=== PATIENT | female | born 1995 | race American Indian/Alaskan Native ===

== ENCOUNTER 2018-12-04 14:37 | Emergency (ER) | payer SELFPAY ==
[2018-12-04 15:03] VITALS: BP 161/58
--- NOTE | 2018-12-04 15:21 | UC ---
Throat Pain/Nasal Manny HPI - HPI Summary HPI Summary: 23-year-old woman comes in with a chief complaint of sore throat for 4 days. Hurts when she swallows. [id number] medicines help with pain. No complaint of any body aches. No shortness of breath. No difficulty breathing. She has been able to eat. - History of Current Complaint Chief Complaint: UCGeneralIllness Stated Complaint: SORE THROAT Time Seen by Provider: 12/04/18 15:10 Hx Last Menstrual Period: 11/14/18 Pain Intensity: 8 - Allergies/Home Medications Allergies/Adverse Reactions: Allergies Allergy/AdvReac Type Severity Reaction Status Date / Time acetaminophen [From [place]] Allergy Hives Verified 12/04/18 14:59 hydrocodone [From [place]] Allergy Hives Verified 12/04/18 14:59 Home Medications: Home Medications Loratadine [Claritin] 10 mg PO DAILY 12/04/18 [History Confirmed 12/04/18] PMH/Surg Hx/FS Hx/Imm Hx Previously Healthy: Yes - Surgical History Surgical History: Yes Surgery Procedure, Year, and Place: Tonsillectomy - Family History Known Family History: Positive: Non-Contributory - Social History Alcohol Use: Occasionally Substance Use Type: None Smoking Status (MU): Heavy Every Day Tobacco Smoker Type: Cigarettes Amount Used/How Often: 1/2 PPD Review of Systems All Other Systems Reviewed And Are Negative: Yes Constitutional: Positive: Negative Skin: Positive: Negative Eyes: Positive: Negative ENT: Positive: Sore Throat, Ear Ache, Sinus Congestion Respiratory: Positive: Negative Cardiovascular: Positive: Negative Gastrointestinal: Positive: Negative Motor: Positive: Negative Neurovascular: Positive: Negative Musculoskeletal: Positive: Negative Neurological: Positive: Negative Psychological: Positive: Negative Is Patient Immunocompromised?: No Physical Exam Triage Information Reviewed: Yes Appearance: No Pain Distress, Well-Nourished, Ill-Appearing - MILD Vital Signs: Initial Vital Signs Temp 97.6 F 12/04/18 15:00 Pulse 75 12/04/18 15:00 Resp 16 12/04/18 15:00 BP 161/58 12/04/18 15:00 Pulse Ox 99 12/04/18 15:00 Vital Signs Reviewed: Yes Eye Exam: Normal Eyes: Positive: Conjunctiva Clear ENT: Positive: Pharyngeal erythema, Nasal congestion, Nasal drainage, TMs normal Neck exam: Normal Neck: Positive: Supple Respiratory: Positive: Lungs clear, Normal breath sounds, No respiratory distress Cardiovascular: Positive: RRR Musculoskeletal Exam: Normal Musculoskeletal: Positive: Strength Intact, ROM Intact Neurological Exam: Normal Neurological: Positive: Alert, Muscle Tone Normal Psychological Exam: Normal Psychological: Positive: Age Appropriate Behavior Skin Exam: Normal Throat Pain/Nasal Course/Dx - Course Course Of Treatment: DISCUSSED VIRAL VERSES BACTERIAL INFECTION AND THE ROLE OF ANTIBIOTICS. THE PATIENT WISHES TO BE ON ANTIBIOTICS AT THIS TIME. - Differential Dx/Diagnosis Provider Diagnosis: Pharyngitis Discharge - Sign-Out/Discharge Documenting (check all that apply): Patient Departure All imaging exams completed and their final reports reviewed: No Studies - Discharge Plan Condition: Stable Disposition: HOME Prescriptions: Amoxicillin PO (*) [Amoxicillin 875 MG (*)] 875 mg PO BID #20 tab Dextromethorphan/Benzocaine [Cepacol Sorethroat-Cough Mylene] 1 mylene PO Q1HR PRN # 30 lozenge PRN Reason: Pain Patient Education Materials: Pharyngitis (ED) Forms: *Work Release Referrals: [facility] [place] [place] [facility] [Outside] Additional Instructions: FOLLOW UP WITH YOUR DOCTOR IF NOT COMPLETELY IMPROVED. GET REEVALUATED SOONER IF YOUR CONDITION WORSENS OR ANY QUESTIONS OR CONCERNS. - Billing Disposition and Condition Condition: STABLE Disposition: Home
== END 2018-12-04 15:37 | disposition home or self-care (01) ==
LOC: UCCORT 14:37
DX: J02.9 Acute pharyngitis, unspecified (principal); R09.81 Nasal congestion; H92.09 Otalgia, unspecified ear; F17.210 Nicotine dependence, cigarettes, uncomplicated; Z88.8 Allergy status to other drugs, medicaments and biological substances; Z88.5 Allergy status to narcotic agent
CPT/HCPCS: 87651; 99202; G0463

== ENCOUNTER 2018-12-31 20:55 | Emergency (ER) | payer SELFPAY ==
[2018-12-31 21:00] VITALS: BP 142/90
[2018-12-31] MEDS ORDERED: methylPREDNISolone 125 MG* 2 ML VIAL IM ONE (21:02)
[2018-12-31] MEDS ORDERED: diPHENhydraMINE IV* 50 MG/ML 1 ml VIAL (BENADRYL) IM ONE (21:03)
--- NOTE | 2018-12-31 21:04 | UC ---
Allergic Reaction HPI - HPI Summary HPI Summary: 23 y/o female presents to the urgent care care c/o concerned about an allergic reaction after eating a chicken sandwich w/ some sauce and dessert w/ some fruit toppings around 1730PM. She felt a raspy throat when she got home. She took a nap and when she woke up she felt sudden onset of left side throat pain and mild swelling w/ some tightness. She took a Benadryl PO 50mg around 1930pm and had some relief, but it is not resolving completely. Sore throat is 7/10. She has had similar reaction in the past, but she hasn't been able to find out what food she is allergic to. Pt denies SOB, difficulty breathing, rash, chest pain, MADDOX, dizziness, abdominal pain, N/V/D. - History of Current Complaint Chief Complaint: UCAllergicReaction Stated Complaint: ALLERGIC REACTION Time Seen by Provider: 12/31/18 21:02 Hx Obtained From: Patient Hx Last Menstrual Period: 12/15/18 ?: No Onset/Duration: Sudden Onset, Lasting Hours - 2 hrs ago, Still Present Severity Initially: Mild Severity Currently: Moderate Pain Intensity: 7 - sore throat Pain Scale Used: 0-10 Numeric Location: Discrete @ - RT side of throat feeling is swollen Character: Swelling - mild, Pain Aggravating Factor(s): OTC Meds - Bendaryl 50mg PO Alleviating Factor(s): Nothing Associated Signs And Symptoms: Positive: Hoarseness, Throat Tightening. Negative: Chest Pain, Cough Wheezing, Difficulty Breathing, Lightheadedness, Nausea, Rash - Related Hx Possible Reaction To: Food - she ate some food - Allergies/Home Medications Allergies/Adverse Reactions: Allergies Allergy/AdvReac Type Severity Reaction Status Date / Time acetaminophen [From [place]] Allergy Hives Verified 12/31/18 20:56 hydrocodone [From [place]] Allergy Hives Verified 12/31/18 20:56 PMH/Surg Hx/FS Hx/Imm Hx Previously Healthy: Yes - Pt denies PMHX - Surgical History Surgical History: Yes Surgery Procedure, Year, and Place: Tonsillectomy - Family History Known Family History: Positive: None - Mother denies FMHX, Non-Contributory - Social History Occupation: Employed Full-time Lives: With Family Alcohol Use: Occasionally Substance Use Type: None Smoking Status (MU): Heavy Every Day Tobacco Smoker Type: Cigarettes Amount Used/How Often: 1/2 PPD Review of Systems All Other Systems Reviewed And Are Negative: Yes Constitutional: Positive: Negative Skin: Positive: Negative Eyes: Positive: Negative ENT: Positive: Sore Throat - RT side pain w/ mild swelling s/p eating food in a restaurant Respiratory: Positive: Negative Cardiovascular: Positive: Negative Gastrointestinal: Positive: Negative Genitourinary: Positive: Negative Motor: Positive: Negative Neurovascular: Positive: Negative Musculoskeletal: Positive: Negative Neurological: Positive: Negative Psychological: Positive: Negative Is Patient Immunocompromised?: No Physical Exam - Summary Physical Exam Summary: VITAL SIGNS: Reviewed. GENERAL: Patient is a well developed and nourished who is sitting comfortable in the examining table. Patient is not in any acute respiratory distress. HEAD AND FACE: No signs of trauma. No ecchymosis, hematomas or skull depressions. No sinus tenderness. EYES: PERRLA, EOMI x 2, No injected conjunctiva, no nystagmus. No photophobia. EARS: Hearing grossly intact. Ear canals and tympanic membranes are within normal limits. MOUTH: Positive pharynx with no erythema, no exudates, no palatal petechiae. NO B/L tonsillar enlargement, no exudate, no swelling observed . Uvula in midline. NECK: Supple, trachea is midline, Positive anterior cervical lymphadenopathy, no JVD, no carotid bruit, no c-spine tenderness, neck with full ROM. No meningeal signs, no Kernig's or brudzinskis signs. CHEST: Symmetric, no tenderness at palpation LUNGS: Clear to auscultation bilaterally. No wheezing or crackles. CVS: Regular rate and rhythm, S1 and S2 present, no murmurs or gallops appreciated. ABDOMEN: Soft, non-tender. No signs of distention. No rebound no guarding, and no masses palpated. Bowel sounds are normal. EXTREMITIES: FROM in all major joints, no edema, no cyanosis or clubbing. NEURO: Alert and oriented x 3. No acute neurological deficits. Speech is normal and follows commands. SKIN: Dry and warm Triage Information Reviewed: Yes Vital Signs: Initial Vital Signs Temp 97 F 12/31/18 20:56 Pulse 78 12/31/18 20:56 Resp 20 04/28/19 20:56 BP 142/90 12/31/18 20:56 Pulse Ox 100 12/31/18 20:56 Allergic Reaction Course/Dx - Course Course Of Treatment: 23 y/o female presents to the urgent care care c/o concerned about an allergic reaction after eating a chicken sandwich w/ some sauce and dessert w/ some fruit toppings around 1730PM. She felt a raspy throat when she got home. She took a nap and when she woke up she felt sudden onset of left side throat pain and mild swelling w/ some tightness. She took a Benadryl PO 50mg around 1930pm and had some relief, but it is not resolving completely. Sore throat is 7/10. She has had similar reaction in the past, but she hasn't been able to find out what food she is allergic to. Pt denies SOB, difficulty breathing, rash, chest pain, MADDOX, dizziness, abdominal pain, N/V/D. Hx obtained. Pt w/ possible food allergic reaction. Pt is hemodynamically stable, vital signs WNL, PE: WNLno signs of anaphylactic reaction or throat swelling. DR mike recommended to give Methylprednisolone IM and Benadryl 50mg IM which were given by the nurse. Pt tolerated well IM inj and felt better after 20min. Pt RX Prednisone PO taper dose, advised to continue taking Benadryl PO to alleviate symptoms. Pt advised to f/u w/ PCP of [facility] DR Garzon to find out what she is allergic to. Pt's BP is elevated today advised to decrease salt in diet, monitor BP and f/u with PCP for further management. D/C instructions explained.Pt understood and agreed w/ plan of care and left the clinic ambulating and hemodynamically stable and feeling better. - Differential Dx/Diagnosis Differential Diagnosis/HQI/PQRI: Airway Obstruction, Anaphylaxis, Angioedema, Local Allergic Reaction, Ceja-Johnsons Syndrome, Urticaria Provider Diagnosis: Allergic reaction to food, Elevated BP without diagnosis of hypertension Discharge - Sign-Out/Discharge Documenting (check all that apply): Patient Departure - D/C home All imaging exams completed and their final reports reviewed: No Studies - Discharge Plan Condition: Stable Disposition: HOME Prescriptions: predniSONE TAB* [Deltasone 20 MG TAB*] 20 mg PO DAILY #11 tab Patient Education Materials: General Allergic Reaction (ED) Forms: *Work Release Referrals: [facility] [place] [facility] [Outside] Aly Garzon MD [Medical Doctor] - 3 Days Additional Instructions: 1-Please Start taking Prednisone PO taper dose starting tomorrow. first loading dose given today at the clinic. 2- Continue taking Benadryl PO to alleviate symptoms. 3- Please f/u with your PCP or Allegist DR Garzon in 2-3 days to find out what you are allergic to and further management 4- If symptoms worsen and you develop SOB or difficulty breathing please go immediately to the ER for further management. 5- Your BP is elevated today. please decrease salt in your diet, monitor BP and if it continues to be elevated please f/u with your PCP for further management. - Billing Disposition and Condition Condition: STABLE Disposition: Home
== END 2018-12-31 21:55 | disposition home or self-care (01) ==
LOC: UCCORT 20:55
DX: T78.1XXA Other adverse food reactions, not elsewhere classified, initial encounter (principal); R03.0 Elevated blood-pressure reading, without diagnosis of hypertension; F17.210 Nicotine dependence, cigarettes, uncomplicated; Z88.5 Allergy status to narcotic agent; Z88.8 Allergy status to other drugs, medicaments and biological substances; X58.XXXA Exposure to other specified factors, initial encounter
CPT/HCPCS: 96372; 99212; G0463; J1200; J2930

== ENCOUNTER 2019-09-08 14:47 | Emergency (ER) | payer SELFPAY ==
[2019-09-08 15:19] VITALS: BP 122/73
--- NOTE | 2019-09-08 15:21 | UC ---
Back Pain HPI - HPI Summary HPI Summary: 24-year-old female complaining of low back pain. She states approximately 3 days ago she worked a double shift as an [employer] and then woke up the next day with some low back pain. She does have a history of urinary tract infections however states this feels different and she has no symptoms of UTI. She denies any numbness or tingling in her extremities and no saddle anesthesia. No recent surgeries. - History of Current Complaint Chief Complaint: UCBackPain Stated Complaint: LOW BACK PAIN Time Seen by Provider: 09/08/19 15:21 Hx Obtained From: Patient Hx Last Menstrual Period: 08/09/19 ?: No Onset/Duration: Gradual Onset Timing: Intermittent Severity Initially: Mild Severity Currently: Mild Pain Intensity: 5 Character: Dull, Aching Aggravating Factor(s): Movement, Bending Alleviating Factor(s): Rest Associated Signs And Symptoms: Positive: Negative. Negative: Weakness, Numbness , Tingling, Abdominal Pain - And test, Flank Pain, Bladder Incontinence, Bowel Incontinence, Pain with Weight Bearing - Allergies/Home Medications Allergies/Adverse Reactions: Allergies Allergy/AdvReac Type Severity Reaction Status Date / Time acetaminophen [From [place]] Allergy Hives Verified 09/08/19 15:19 hydrocodone [From [place]] Allergy Hives Verified 09/08/19 15:19 Home Medications: Home Medications Loratadine 10 mg PO DAILY 09/08/19 [History Confirmed 09/08/19] PMH/Surg Hx/FS Hx/Imm Hx Previously Healthy: Yes - Surgical History Surgical History: Yes Surgery Procedure, Year, and Place: Tonsillectomy - Family History Known Family History: Positive: None - Mother denies FMHX, Non-Contributory - Social History Occupation: Employed Full-time Lives: With Family Alcohol Use: Occasionally Substance Use Type: None Smoking Status (MU): Heavy Every Day Tobacco Smoker Type: Cigarettes Amount Used/How Often: 1/2 PPD Review of Systems All Other Systems Reviewed And Are Negative: Yes Musculoskeletal: Positive: Other: - Low back pain over the past 3 days. Patient denies any specific injury however she did work a double shift as an [employer] and thinks maybe she slept wrong however she is unsure. Is Patient Immunocompromised?: No Physical Exam Triage Information Reviewed: Yes Appearance: Well-Appearing, No Pain Distress, Well-Nourished Vital Signs: Initial Vital Signs Temp 97.7 F 09/08/19 15:14 Pulse 73 09/08/19 15:14 Resp 16 09/08/19 15:14 BP 122/73 09/08/19 15:14 Pulse Ox 100 09/08/19 15:14 Vital Signs Reviewed: Yes Respiratory: Positive: Lungs clear, Normal breath sounds, No respiratory distress, No accessory muscle use Cardiovascular: Positive: RRR, No Murmur, Pulses Normal, Brisk Capillary Refill Abdomen Description: Positive: Nontender, No Organomegaly, Soft. Negative: CVA Tenderness (R), CVA Tenderness (L), Distended, Guarding, Hepatomegaly, Splenomegaly Bowel Sounds: Positive: Present Musculoskeletal Exam: Normal Musculoskeletal: Positive: Other: - Mild pain on palpation over the paraspinal muscle areas bilaterally. No erythema, bruising, swelling or deformity is noted. Full range of motion of her extremities. Good arm and leg strength against resistance. Neurological Exam: Normal Psychological Exam: Normal Skin Exam: Normal Back Pain Course/Dx - Course Course Of Treatment: Urinalysis: Negative Urine hCG: Negative The patient is comfortable here. She would like tonight off work which was given. She can take Motrin every 8 hours and I also wrote a prescription for Flexeril 3 times a day. She is to avoid movements that cause pain. Follow-up with her primary care provider as needed. - Differential Dx/Diagnosis Provider Diagnosis: Low back strain Discharge ED - Sign-Out/Discharge Documenting (check all that apply): Patient Departure All imaging exams completed and their final reports reviewed: No Studies - Discharge Plan Condition: Good Disposition: HOME Prescriptions: Cyclobenzaprine TAB* [Flexeril 10 MG TAB*] 10 mg PO TID PRN #15 tab PRN Reason: Pain - Mild Ibuprofen TAB* [Motrin TAB* 600 MG] 600 mg PO Q8H PRN #21 tab PRN Reason: Pain - Mild Patient Education Materials: Low Back Strain (ED) Forms: *Work Release Referrals: [facility] [Outside] No Primary Care Phys,NOPCP [Primary Care Provider] - Additional Instructions: Avoid movements that cause pain, may apply heat or ice to the sore area. Take Motrin with food. No drinking alcohol, driving or operating machinery while you 're taking the muscle relaxant. Definite follow-up with [facility] if no improvement in 3 or 4 days. - Billing Disposition and Condition Condition: GOOD Disposition: Home
== END 2019-09-08 15:56 | disposition home or self-care (01) ==
LOC: UCCORT 14:47
DX: S39.012A Strain of muscle, fascia and tendon of lower back, initial encounter (principal); F17.210 Nicotine dependence, cigarettes, uncomplicated; Z88.5 Allergy status to narcotic agent; X58.XXXA Exposure to other specified factors, initial encounter; Y92.9 Unspecified place or not applicable
CPT/HCPCS: 81003; 84702; 99212; G0463